=== PATIENT | male | born 1970 | race Caucasian/White ===

== ENCOUNTER 2017-03-21 11:37 | Emergency (ER) | payer MEDICARE, OTHER ==
[~2017-03-21] VITALS: Ht 177.8 cm; Wt 59.0 kg
[~2017-03-21 11:37] MED LIST: ACETAMINOPHEN500 MG PO; AMOCLA875 PO; Augmentin 875-1 EACH PO; Bactrim Ds Tab1 EACH PO; CEPH500 PO; CRUTCH3 USE; CYCL10 PO; Cleocin HCl300 MG PO; DIPH50 PO; DIVA125 PO; DOCU100 PO; Depakote125 MG PO; FOLI1 PO; FURO40 PO; HYDACE5 PO; IBUP400 PO; Keflex500 MG PO; METO25 PO; MULVITMIND PO; NAPR500 PO; NAPR550 PO; Norco 5-325 Ta1 EACH PO; OXYACE5T PO; POTCHL20ER PO; PRED15SY PO; PROM25 PO; Percocet 5-3251 EACH PO; QUET25 PO; RXNAPNA550 PO; Restoril15 MG PO; SULTRIDS PO; Synthroid175 MCG PO; THIA100 PO; TRAM50 PO
[2017-03-21] MEDS ORDERED: Ciloxan5 ML LEFTEYE (12:07)
== END 2017-03-21 12:37 | disposition home or self-care (01) ==
LOC: ER 11:37
DX: H16.002 Unspecified corneal ulcer, left eye (principal); F17.210 Nicotine dependence, cigarettes, uncomplicated
CPT/HCPCS: 99283

== ENCOUNTER 2018-10-17 09:25 | Emergency (ER) | payer MEDICARE, OTHER ==
[~2018-10-17] VITALS: Ht 175.3 cm; Wt 54.4 kg
[~2018-10-17 09:25] MED LIST changes: +Ciloxan5 ML LEFTEYE
[2018-10-17 11:16] LABS: BASOPHILS ABSOLUTE AUTO 0.08 K/mm3 (0.00-0.23); BASOPHILS PERCENT AUTO 1 % (0-2); EOSINOPHILS ABSOLUTE AUTO 0.03 K/mm3 (0.00-0.68); EOSINOPHILS PERCENT AUTO 0 % (0-6); Hemoglobin 11.1 g/dL (13.5-17.5); IMMATURE GRAN ABSOLUTE AUTO 0.07 K/mm3 (0.00-0.10); IMMATURE GRAN PERCENT AUTO 1 % (0-1); LYMPHOCYTES ABSOLUTE AUTO 2.98 K/mm3 (0.84-5.20); LYMPHOCYTES PERCENT AUTO 25 % (21-46); MONOCYTES ABSOLUTE AUTO 0.49 K/mm3 (0.16-1.47); MONOCYTES PERCENT AUTO 4 % (4-13); Mean Corpuscular HGB 31.9 pg (26.0-34.0); Mean Corpuscular HGB Conc 32.6 g/dL (31.5-36.5); Mean Corpuscular Volume 98 fL (80-100); Mean Platelet Volume 9.8 fL (9.1-12.4); NEUTROPHILS ABSOLUTE AUTO 8.24 K/mm3 (1.96-9.15); NEUTROPHILS PERCENT AUTO 69 % (41-73); Platelet Count 219 K/mm3 (150-400); RDW Coefficient Variation 16.4 % (11.7-14.2); RDW Standard Deviation 59.2 fL (35.1-46.3); Red Blood Cell Count 3.48 M/mm3 (4.30-5.90); White Blood Cell Count 11.89 K/mm3 (4.00-11.30)
[2018-10-17 11:36] LABS: Alanine Aminotransfer (ALT/SGP 69 U/L (12-78); Albumin, Blood 2.3 g/dL (3.4-5.0); Albumin/Globulin Ratio 0.4 (0.8-1.8); Alk Phos 673 U/L (50-136); Anion Gap 10 mmol/L (6-16); Aspartate Aminotrans (AST/SGOT 241 U/L (12-37); Bilirubin, Total 1.5 mg/dL (0.1-1.0); Blood Urea Nitrogen 2 mg/dL (8-24); Bun/Creatinine Ratio 4.6 (12.0-20.0); CO2, Blood 25 mmol/L (21-32); Calcium, Blood 8.2 mg/dL (8.5-10.1); Chloride, Blood 103 mmol/L (98-108); Creatinine, Blood 0.43 mg/dL (0.60-1.20); Globulin, Blood 5.2 g/dL (2.2-4.0); Glomerular Filtration Rate >60 (60-); Glucose, Blood 85 mg/dL (70-99); Potassium, Blood 3.5 mmol/L (3.5-5.5); Sodium, Blood 138 mmol/L (136-145); Total Protein, Blood 7.5 g/dL (6.4-8.2)
[2018-10-17] MEDS ORDERED: ERYT1OIN RIGHTEYE (13:23)
[2018-10-17] MEDS ORDERED: Augmentin 875-1 EACH PO (13:23)
[2018-10-17] MEDS ORDERED: NEOPOLHCSU LEFTEAR (13:23)
== END 2018-10-17 13:34 | disposition home or self-care (01) ==
LOC: ER 09:25
PROVIDERS: Emergency Medicine
DX: H60.92 Unspecified otitis externa, left ear (principal); H10.021 Other mucopurulent conjunctivitis, right eye; J18.9 Pneumonia, unspecified organism; R19.7 Diarrhea, unspecified; F17.210 Nicotine dependence, cigarettes, uncomplicated; Z91.14 Patient's other noncompliance with medication regimen
CPT/HCPCS: 36415; 71045; 80053; 85025; 96360; 99283-25; J7030

== ENCOUNTER 2019-10-02 13:18 | Inpatient (IN) | payer MEDICARE, OTHER ==
[~2019-10-02] VITALS: Ht 175.3 cm; Wt 57.0 kg
[~2019-10-02 13:18] MED LIST changes: +ERYT1OIN RIGHTEYE; +NEOPOLHCSU LEFTEAR
[2019-10-02 13:40] LABS: BASOPHILS ABSOLUTE AUTO 0.06 K/mm3 (0.00-0.23); BASOPHILS PERCENT AUTO 0 % (0-2); EOSINOPHILS ABSOLUTE AUTO 0.01 K/mm3 (0.00-0.68); EOSINOPHILS PERCENT AUTO 0 % (0-6); Hematocrit 43.9 % (37.0-53.0); Hemoglobin 14.5 g/dL (13.5-17.5); IMMATURE GRAN ABSOLUTE AUTO 0.21 K/mm3 (0.00-0.10); IMMATURE GRAN PERCENT AUTO 1 % (0-1); LYMPHOCYTES ABSOLUTE AUTO 1.19 K/mm3 (0.84-5.20); LYMPHOCYTES PERCENT AUTO 5 % (21-46); MONOCYTES ABSOLUTE AUTO 1.23 K/mm3 (0.16-1.47); MONOCYTES PERCENT AUTO 6 % (4-13); Mean Corpuscular HGB 29.1 pg (26.0-34.0); Mean Corpuscular Volume 88 fL (80-100); Mean Platelet Volume 10.1 fL (9.1-12.4); NEUTROPHILS ABSOLUTE AUTO 19.84 K/mm3 (1.96-9.15); NEUTROPHILS PERCENT AUTO 88 % (41-73); Platelet Count 183 K/mm3 (150-400); RDW Coefficient Variation 16.5 % (11.7-14.2); RDW Standard Deviation 53.1 fL (35.1-46.3); Red Blood Cell Count 4.99 M/mm3 (4.30-5.90); White Blood Cell Count 22.54 K/mm3 (4.00-11.30)
[2019-10-02 14:24] LABS: Alanine Aminotransfer (ALT/SGP 138 U/L (12-78); Albumin, Blood 2.4 g/dL (3.4-5.0); Albumin/Globulin Ratio 0.4 (0.8-1.8); Alk Phos 982 U/L (50-136); Anion Gap 13 mmol/L (6-16); Aspartate Aminotrans (AST/SGOT 931 U/L (12-37); Bilirubin, Total 5.8 mg/dL (0.1-1.0); Blood Urea Nitrogen 4 mg/dL (8-24); Bun/Creatinine Ratio 6.8 (12.0-20.0); CO2, Blood 23 mmol/L (21-32); Calcium, Blood 8.6 mg/dL (8.5-10.1); Chloride, Blood 94 mmol/L (98-108); Creatinine, Blood 0.59 mg/dL (0.60-1.20); Globulin, Blood 5.8 g/dL (2.2-4.0); Glomerular Filtration Rate >60 (60-); Glucose, Blood 81 mg/dL (70-99); Potassium, Blood 3.7 mmol/L (3.5-5.5); Sodium, Blood 130 mmol/L (136-145); Total Protein, Blood 8.2 g/dL (6.4-8.2)
[2019-10-02 15:40] LABS: Source, Urine Clean Catch
[2019-10-02 15:52] LABS: Appearance, Urine Cloudy (Clear); Blood, Urine 3+ (Neg); Color, Urine Amber (P-Yellow); Glucose Qualitative, Urine Neg (Neg); Ketones, Urine 3+ (Neg); Leukocyte Esterase, Urine 1+ (Neg); Nitrite, Urine Neg (Neg); Protein, Urine 3+ (Neg); Urobilinogen, Urine 3+ (Normal)
[2019-10-02] MEDS ORDERED: VALTREX1000 M1 PO (15:56)
[2019-10-02] MEDS ORDERED: DOXYCYCLINE HY100 M1 PO (15:57)
[2019-10-02] MEDS ORDERED: PRED FORTE5 ML BOTHEYES (15:57)
[2019-10-02 16:00] LABS: Bilirubin, Urine 3+ (Neg)
[2019-10-02 16:03] LABS: Amorphous Light (0-Heavy); Bacteria Mod /hpf; Mucus Mod (0-Heavy); Squamous Epithelial Cells Many /hpf (Few)
[2019-10-02 18:31] LABS: Cholesterol 137 mg/dL (50-200); HDL Cholesterol 34 mg/dL (>39); LDL/HDL RATIO 2.4; Low Density Lipoprotein Chol 83 mg/dL (0-110); Triglycerides 101 mg/dL (30-160); Very Low Density Lipoprot Chol 20 mg/dL (6-32)
--- NOTE | 2019-10-02 21:01 | NUR ---
transfer report from PARTS CATALOGUERJAMMIE Eden on 48 year old Male with pancreatitis who will on be on IV fluids , tele, NPO & have pain meds & CIWA assessments. Smokes 1 PPD tobacco, ETOH says 3 beers daily. Tx UTI had antibiotic pain meds IVF in ER. Await admission
--- NOTE | 2019-10-02 21:54 | NUR ---
48 year old Male arrived from ER wearing mask he looks older than actual age & is very thin. 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 He says his & he got shingles in his left eye which has been removed & replaced with donar eye. PT got up to bed Wearing mask & began vomiting which he had not done in ER. Due to mask PT may have aspirated. REmoved mask & PT continued to vomit thin dark emisis around 300 ml. HAs been NPO in ER says no oral intake since yesterday. When assisting PT to clean emisis it appears some old blood may be present in emisis. PT has banana bag infusing via IV. PT says his last ETOH was a week ago. Was drinking 3 24 oz beers daily. Smokes 1 PPD asking for nicotine patch for tobacco addiction. will discuss with
--- NOTE | 2019-10-03 04:18 | NUR ---
PTb had several coffee ground emisis at beginning of shift none since. Saved emisis in specimen container at bedside , MD La was informed. Protonix IV started NPO. Passing flatus. Medicated with zofran for nausea & vomiting x 1 with helpful effect. Med for abd pain of 7 with dilaudid x 1 with helpful effect. CIWA req no intervention currently. Wide awake since admission. Up with minimal assist. Tele NSR.
[2019-10-03 05:42] LABS: BASOPHILS ABSOLUTE AUTO 0.05 K/mm3 (0.00-0.23); BASOPHILS PERCENT AUTO 0 % (0-2); EOSINOPHILS PERCENT AUTO 0 % (0-6); Hematocrit 38.8 % (37.0-53.0); Hemoglobin 12.9 g/dL (13.5-17.5); IMMATURE GRAN ABSOLUTE AUTO 0.18 K/mm3 (0.00-0.10); IMMATURE GRAN PERCENT AUTO 1 % (0-1); LYMPHOCYTES ABSOLUTE AUTO 1.82 K/mm3 (0.84-5.20); LYMPHOCYTES PERCENT AUTO 8 % (21-46); MONOCYTES ABSOLUTE AUTO 1.09 K/mm3 (0.16-1.47); MONOCYTES PERCENT AUTO 5 % (4-13); Mean Corpuscular HGB 29.7 pg (26.0-34.0); Mean Corpuscular HGB Conc 33.2 g/dL (31.5-36.5); Mean Corpuscular Volume 89 fL (80-100); NEUTROPHILS ABSOLUTE AUTO 19.15 K/mm3 (1.96-9.15); NEUTROPHILS PERCENT AUTO 86 % (41-73); Platelet Count 144 K/mm3 (150-400); RDW Coefficient Variation 16.9 % (11.7-14.2); RDW Standard Deviation 54.6 fL (35.1-46.3); Red Blood Cell Count 4.35 M/mm3 (4.30-5.90); White Blood Cell Count 22.29 K/mm3 (4.00-11.30)
[2019-10-03 06:09] LABS: Alanine Aminotransfer (ALT/SGP 202 U/L (12-78); Albumin, Blood 2.1 g/dL (3.4-5.0); Albumin/Globulin Ratio 0.4 (0.8-1.8); Alk Phos 855 U/L (50-136); Anion Gap 7 mmol/L (6-16); Aspartate Aminotrans (AST/SGOT 820 U/L (12-37); Bilirubin, Total 6.3 mg/dL (0.1-1.0); Blood Urea Nitrogen 11 mg/dL (8-24); Bun/Creatinine Ratio 9.7 (12.0-20.0); CO2, Blood 27 mmol/L (21-32); Calcium, Blood 7.7 mg/dL (8.5-10.1); Chloride, Blood 97 mmol/L (98-108); Creatinine, Blood 1.13 mg/dL (0.60-1.20); Globulin, Blood 4.9 g/dL (2.2-4.0); Glomerular Filtration Rate >60 (60-); Glucose, Blood 104 mg/dL (70-99); Potassium, Blood 3.9 mmol/L (3.5-5.5); Sodium, Blood 131 mmol/L (136-145)
--- NOTE | 2019-10-03 16:31 | NUR ---
SUMMARY THIS AM PT NPO, DX PANCREATITIS w LIPASE [phone]. HE IS A/O X3 THIS AM, VERBALIZE UNDERSTANDING OF TX FOR PANCREATITIS & NEED FOR NPO. HE STATE MID ABD PAIN THIS AM, PRN DILAUDID 1MG IV GIVEN FOR RELIEF. DR BUSBY ORDER MRI ABD & GI CONSULT w DR GERAMN. GI IN FOR CONSULT, ORIGINALLY WANTED EGD THIS AFTERNOON HOWEVER POSTPONED UNTIL TOMORROW, STATE TO CONTINUE PROTONIX GTT OVERNITE & GIVE PT CLEAR LIQUID DIET. PT TOLERATING SM AMTS. HE HAS HX ETOH, MONITORING FOR S/S W/D. THIS AFTERNOON CIWA 6 R/T CLOUDED THOUGHT, ITCHING. PRN LIBRIUM GIVEN. VSS.
[2019-10-03 20:33] LABS: Hematocrit 38.3 % (37.0-53.0); Hemoglobin 12.3 g/dL (13.5-17.5)
[2019-10-04 02:23] LABS: BASOPHILS ABSOLUTE AUTO 0.03 K/mm3 (0.00-0.23); BASOPHILS PERCENT AUTO 0 % (0-2); EOSINOPHILS ABSOLUTE AUTO 0.05 K/mm3 (0.00-0.68); EOSINOPHILS PERCENT AUTO 0 % (0-6); Hematocrit 35.3 % (37.0-53.0); Hemoglobin 11.8 g/dL (13.5-17.5); IMMATURE GRAN PERCENT AUTO 1 % (0-1); LYMPHOCYTES ABSOLUTE AUTO 1.71 K/mm3 (0.84-5.20); LYMPHOCYTES PERCENT AUTO 11 % (21-46); MONOCYTES PERCENT AUTO 4 % (4-13); Mean Corpuscular HGB 29.6 pg (26.0-34.0); Mean Corpuscular HGB Conc 33.4 g/dL (31.5-36.5); Mean Corpuscular Volume 89 fL (80-100); Mean Platelet Volume 11.6 fL (9.1-12.4); NEUTROPHILS ABSOLUTE AUTO 13.01 K/mm3 (1.96-9.15); NEUTROPHILS PERCENT AUTO 84 % (41-73); Platelet Count 128 K/mm3 (150-400); RDW Coefficient Variation 17.4 % (11.7-14.2); RDW Standard Deviation 56.2 fL (35.1-46.3); Red Blood Cell Count 3.98 M/mm3 (4.30-5.90)
[2019-10-04 02:36] LABS: International Normalized Ratio 1.28; Prothrombin Time Results 13.5 Sec (9.7-11.5)
[2019-10-04 02:40] LABS: Alanine Aminotransfer (ALT/SGP 170 U/L (12-78); Albumin, Blood 1.9 g/dL (3.4-5.0); Albumin/Globulin Ratio 0.5 (0.8-1.8); Alk Phos 706 U/L (50-136); Anion Gap 7 mmol/L (6-16); Aspartate Aminotrans (AST/SGOT 469 U/L (12-37); Bilirubin, Total 5.4 mg/dL (0.1-1.0); Blood Urea Nitrogen 8 mg/dL (8-24); Bun/Creatinine Ratio 9.8 (12.0-20.0); CO2, Blood 24 mmol/L (21-32); Calcium, Blood 7.8 mg/dL (8.5-10.1); Chloride, Blood 103 mmol/L (98-108); Creatinine, Blood 0.82 mg/dL (0.60-1.20); Globulin, Blood 4.2 g/dL (2.2-4.0); Glomerular Filtration Rate >60 (60-); Glucose, Blood 75 mg/dL (70-99); Potassium, Blood 3.3 mmol/L (3.5-5.5); Sodium, Blood 134 mmol/L (136-145); Total Protein, Blood 6.1 g/dL (6.4-8.2)
--- NOTE | 2019-10-04 03:02 | NUR ---
PT continues on IVF INPATIENT AUDITOR Lino updated on need to have fliuds on NPO PT with pancreatitis & elevated biliruben. NS at 100 ml hr rx & continued. PT was medicated for abd pain x 1 with fentanyl 50 mcg with helpful effect to relieve abd pain. started on clear liquids, had minimal oral intake drank 50% ensure clear without nausea. Alert awake with more confusion. Medicated for CIWA score with librium 50 mg with helpful effect to promote rest. Up with assist to bathroom urine ted orange voids small amts. 0 stool or emisis seen. Had MRI abd pelvis yesterday GI consult & has upper endo scheduled for today. Mildly anxious about procedure.
[2019-10-04 08:11] LABS: HBSAG SCREEN Negative (Negative); HEP B CORE AB, TOT Negative (Negative); HEP C VIRUS AB 0.1 (0.0-0.9)
[2019-10-04 08:11] LABS: HEP A AB, IGM Negative (Negative); HEP B CORE AB, IGM Negative (Negative)
[2019-10-04 08:15] LABS: Hematocrit 32.5 % (37.0-53.0); Hemoglobin 10.6 g/dL (13.5-17.5)
--- NOTE | 2019-10-04 09:57 | NUR ---
ASSUME CARE: PT PLAN FOR EGD TODAY, EKG WAS DONE PRE PROCEDURE. VITALS HRR SINUS TACH 110'S, DENIES CHEST PAIN PRESSURE, BP SYSTOLIC 110'S, SATS ABOVE 95% ON ROOMAIR, DENIES SOB. PT REMAINS ON CLEAR LIQUID DIET STILL HAS POOR APPETITE, C/O MILD NAUSEA MOSTLY WITH MOVEMENTS, CIWA CURRENTLY STABLE AT 8. NO ACUTE CHANGES. LR STARTED RUNNING AT 100MLS/HR, PROTONIX DRIP AND IV ABO PER ORDER. PT ALERT TO SELF AN DFAMILY, MILD CONFUSION, ABLE TO MAKE NEEDS KNOWN, GETS UP AND MOVE AROUND TO USE THE BATHROOM, BED ALARM ON FOR SAFETY. WILL MONITOR
--- NOTE | 2019-10-04 11:52 | NUR ---
PT TO [facility]. APPEARS ANXIOUS, MOTHER REPORTS VERY POOR SHORT TERM MEMORY. PRE-OP TEACHING DONE. Lungs clear T/O to Auscultation. History, Chart, Medications and Allergies reviewed before start of procedure. Patient confirms NPO status and agrees with scheduled surgery.
--- NOTE | 2019-10-04 12:21 | NUR ---
10/04/19 1221 VASYL OSPINA History, Chart, Medications and Allergies reviewed before start of procedure. 3-LEAD EKG REVIEWED WITH PHYSICIAN PRIOR TO START OF PROCEDURE. O2 VIA N/C INTACT THROUGHOUT SEDATION/PROCEDURE. MONITOR INTACT WITH CONTINUOUS PULSE OXIMETRY AND INTERMITTENT BP. MODERATE SEDATION WITH FENTANYL VERSED PER DR. MOROCHO.
[2019-10-04 14:03] LABS: Hemoglobin 11.3 g/dL (13.5-17.5)
--- NOTE | 2019-10-04 17:19 | NUR ---
PT SUMARY: SEE PREVIOUS NOTE. EGD WAS DONE TODAY, NO INTERVENTION DONE THERE NO ACTIVE BLEEDING SEEN ON THE SCOPE, ESOPHAGITIS AND GASTRITIS SEEN, PT STARTED ON CARAFATE, PROTONIX DRIP DC'D. CONITNUES ON LR AT 100MLS/HR. PT REMAINS ON CLEAR LIQUID, C/O NAUSEA THIS AM ZOFRAN GIVEN AND WAS EFFECTIVE, PT WITH ORDER TO ADVANCE DIET TOLERATED, PT STILL HAS POOR APPETITE AT THIS POINT. CIWA SCORES STABLE 8-10, LIBRIUM WAS GIVEN X1, PT HAS VISIBLE TREMORS MOSTLY WITH MOVEMENT, ALSO ATTEMPTED TO GET OUT OF BED TO SMOKE PT WAS EASILY GET REDIRECTED. BED ALARM ON FOR SAFETY. PT CALM AND COOPERATIVE EASILY FOLLOWS DIRECTION. VITALS HAS BEEN STABLE. NO OTHER ISSUES ECNOUNTERED FOR DAVIAN SHIFT. WILL REPORT TO ONCOMING SHIFT
[2019-10-05 05:15] LABS: BASOPHILS ABSOLUTE AUTO 0.06 K/mm3 (0.00-0.23); BASOPHILS PERCENT AUTO 0 % (0-2); EOSINOPHILS ABSOLUTE AUTO 0.06 K/mm3 (0.00-0.68); EOSINOPHILS PERCENT AUTO 0 % (0-6); Hematocrit 30.3 % (37.0-53.0); IMMATURE GRAN ABSOLUTE AUTO 0.16 K/mm3 (0.00-0.10); IMMATURE GRAN PERCENT AUTO 1 % (0-1); LYMPHOCYTES ABSOLUTE AUTO 1.82 K/mm3 (0.84-5.20); LYMPHOCYTES PERCENT AUTO 12 % (21-46); MONOCYTES ABSOLUTE AUTO 1.34 K/mm3 (0.16-1.47); MONOCYTES PERCENT AUTO 9 % (4-13); Mean Corpuscular HGB 29.2 pg (26.0-34.0); Mean Corpuscular Volume 88 fL (80-100); Mean Platelet Volume 10.8 fL (9.1-12.4); NEUTROPHILS PERCENT AUTO 77 % (41-73); NRBC ABSOLUTE 0.02 K/mm3 (0.00-0.02); NRBC Auto 0.1 /100 WBC (0.0-0.2); Platelet Count 132 K/mm3 (150-400); RDW Coefficient Variation 17.5 % (11.7-14.2); RDW Standard Deviation 56.8 fL (35.1-46.3); Red Blood Cell Count 3.43 M/mm3 (4.30-5.90); White Blood Cell Count 14.74 K/mm3 (4.00-11.30)
[2019-10-05 05:51] LABS: Alanine Aminotransfer (ALT/SGP 116 U/L (12-78); Albumin, Blood 1.7 g/dL (3.4-5.0); Albumin/Globulin Ratio 0.4 (0.8-1.8); Alk Phos 652 U/L (50-136); Anion Gap 9 mmol/L (6-16); Aspartate Aminotrans (AST/SGOT 221 U/L (12-37); Bilirubin, Total 4.2 mg/dL (0.1-1.0); Blood Urea Nitrogen 6 mg/dL (8-24); Bun/Creatinine Ratio 9.6 (12.0-20.0); CO2, Blood 22 mmol/L (21-32); Calcium, Blood 7.2 mg/dL (8.5-10.1); Chloride, Blood 104 mmol/L (98-108); Creatinine, Blood 0.62 mg/dL (0.60-1.20); Globulin, Blood 4.1 g/dL (2.2-4.0); Glomerular Filtration Rate >60 (60-); Glucose, Blood 81 mg/dL (70-99); Potassium, Blood 2.9 mmol/L (3.5-5.5); Sodium, Blood 135 mmol/L (136-145); Total Protein, Blood 5.8 g/dL (6.4-8.2)
--- NOTE | 2019-10-05 06:35 | NUR ---
SHIFT SUMMARY PATIENT VERY CONFUSED OVERNIGHT. WAS PULLING AT TELE LEADS AND IV TUBING, COULDN'T REMEMBER WHERE HE WAS AT OR WHAT DAY IT WAS. MEDICATED PER EMAR FOR PAIN. CIWAS ALL SHOWED THE PATIENT TO BE IN STABLE WITHDRAWAL. IV PATENT AND INFUSING WITH LACTATED RINGERS AT 100 ML/HR. BED IN LOWEST POSITION WITH WHEELS LOCKED AND ALARM ON. CALL LIGHT WITHIN REACH. REPORT GIVEN TO ONCOMING RN.
--- NOTE | 2019-10-05 18:29 | NUR ---
PT IMPULSIVE, FORGETS LIMITATIONS AND JUMPS OUT OF BED AND HE MOVES QUICKLY. HE HAS PULLED A COUPLE IV'S THIS WAY. NEW IV PLACED THIS MORNING. PT POTASSIUM LEVEL 2.9 WITH AM LABS. RECEIVED 60MEQ IV KCL, TOLERATED WELL. 1 LARGE LOOSE STOOL THIS SHIFT. NO ACUTE CHANGES, WILL CONTINUE TO MONITOR AND REPORT TO ON COMING RN
[2019-10-06 05:16] LABS: BASOPHILS ABSOLUTE AUTO 0.07 K/mm3 (0.00-0.23); BASOPHILS PERCENT AUTO 0 % (0-2); EOSINOPHILS ABSOLUTE AUTO 0.06 K/mm3 (0.00-0.68); EOSINOPHILS PERCENT AUTO 0 % (0-6); Hematocrit 29.2 % (37.0-53.0); Hemoglobin 9.9 g/dL (13.5-17.5); IMMATURE GRAN ABSOLUTE AUTO 0.33 K/mm3 (0.00-0.10); IMMATURE GRAN PERCENT AUTO 2 % (0-1); LYMPHOCYTES ABSOLUTE AUTO 2.29 K/mm3 (0.84-5.20); LYMPHOCYTES PERCENT AUTO 12 % (21-46); MONOCYTES PERCENT AUTO 14 % (4-13); Mean Corpuscular HGB 29.3 pg (26.0-34.0); Mean Corpuscular HGB Conc 33.9 g/dL (31.5-36.5); Mean Corpuscular Volume 86 fL (80-100); Mean Platelet Volume 10.7 fL (9.1-12.4); NEUTROPHILS ABSOLUTE AUTO 14.28 K/mm3 (1.96-9.15); NEUTROPHILS PERCENT AUTO 72 % (41-73); Platelet Count 135 K/mm3 (150-400); RDW Coefficient Variation 17.8 % (11.7-14.2); Red Blood Cell Count 3.38 M/mm3 (4.30-5.90); White Blood Cell Count 19.83 K/mm3 (4.00-11.30)
[2019-10-06 05:35] LABS: Alanine Aminotransfer (ALT/SGP 85 U/L (12-78); Albumin, Blood 1.6 g/dL (3.4-5.0); Albumin/Globulin Ratio 0.4 (0.8-1.8); Alk Phos 596 U/L (50-136); Anion Gap 5 mmol/L (6-16); Aspartate Aminotrans (AST/SGOT 109 U/L (12-37); Bilirubin, Total 4.3 mg/dL (0.1-1.0); Blood Urea Nitrogen 3 mg/dL (8-24); Bun/Creatinine Ratio 5.5 (12.0-20.0); CO2, Blood 27 mmol/L (21-32); Calcium, Blood 7.2 mg/dL (8.5-10.1); Chloride, Blood 101 mmol/L (98-108); Creatinine, Blood 0.55 mg/dL (0.60-1.20); Globulin, Blood 4.1 g/dL (2.2-4.0); Glomerular Filtration Rate >60 (60-); Glucose, Blood 106 mg/dL (70-99); Potassium, Blood 2.8 mmol/L (3.5-5.5); Sodium, Blood 133 mmol/L (136-145); Total Protein, Blood 5.7 g/dL (6.4-8.2)
--- NOTE | 2019-10-06 05:43 | NUR ---
Rn summary: Patient is alert but confused. Stated part way through shift that he was not aware he was in the hospital. Pt thought the year was 2009, didnt know the month but did know the president. Pt did unhook his IV line and take off his tele. He has done better the second half of the shift and has rested on and off. Pt has not c/o abd pain, did have some back pain. Has not needed pain meds this shift. Pt did have a lot of clear liquids at the beginning of shift, no c/o nausia. Pt is getting scheduled zofran. K+ remains low 2.8 this am. WBC is more elevated. Vital signs are stable. Bed alarm on bed, pt does not use call light reliably, he is impulsive and forgetful. He can be redirected.
[2019-10-06 15:43] LABS: Anion Gap 8 mmol/L (6-16); Blood Urea Nitrogen 3 mg/dL (8-24); Bun/Creatinine Ratio 6.3 (12.0-20.0); CO2, Blood 25 mmol/L (21-32); Calcium, Blood 7.8 mg/dL (8.5-10.1); Chloride, Blood 98 mmol/L (98-108); Creatinine, Blood 0.47 mg/dL (0.60-1.20); Glomerular Filtration Rate >60 (60-); Glucose, Blood 84 mg/dL (70-99); Potassium, Blood 3.2 mmol/L (3.5-5.5); Sodium, Blood 131 mmol/L (136-145)
--- NOTE | 2019-10-06 18:21 | NUR ---
PT WITH KCL OF 2.8 THIS AM, 80 MEQ IV KCL ORDERED AND GIVEN. CHEM LAB THIS AFTERNOON SHOWED KCL OF 3.2. 20 MEQ REMAINED TO BE INFUSED. NO REPORTS OF N/V OR PAIN. NO ACUTE CHANGES NOTED THIS SHIFT. WILL CONTINUE TO MONITOR AND REPORT TO ONCOMING RN
--- NOTE | 2019-10-07 06:16 | NUR ---
SHIFT SUMMARY: PT IS ALERT AND ORIENTED WITH INTERMITTENT CONFUSION. PT DID NOT USE HIS CALL LIGHT OVERNIGHT, SET OFF THE BED ALARM ON SEVERAL OCCASIONS. PT DENIES PAIN, NAUSEA, VOMITING, AND SOB. PT SLEPT INTERMITTENTLY THROUGHOUT THE NIGHT. BED IN LOW POSITION, CALL LIGHT WITHIN REACH. WILL REPORT TO DAY NURSE.
[2019-10-07 08:47] LABS: Anion Gap 8 mmol/L (6-16); Blood Urea Nitrogen 3 mg/dL (8-24); Bun/Creatinine Ratio 4.8 (12.0-20.0); CO2, Blood 25 mmol/L (21-32); Calcium, Blood 7.5 mg/dL (8.5-10.1); Chloride, Blood 101 mmol/L (98-108); Creatinine, Blood 0.63 mg/dL (0.60-1.20); Glomerular Filtration Rate >60 (60-); Glucose, Blood 94 mg/dL (70-99); Potassium, Blood 3.2 mmol/L (3.5-5.5); Sodium, Blood 134 mmol/L (136-145)
[2019-10-07 09:08] LABS: Hematocrit 29.4 % (37.0-53.0); Mean Corpuscular HGB 29.6 pg (26.0-34.0); Mean Corpuscular Volume 87 fL (80-100); Mean Platelet Volume 11.7 fL (9.1-12.4); Platelet Count 144 K/mm3 (150-400); RDW Coefficient Variation 18.1 % (11.7-14.2); RDW Standard Deviation 57.4 fL (35.1-46.3); Red Blood Cell Count 3.38 M/mm3 (4.30-5.90); White Blood Cell Count 18.64 K/mm3 (4.00-11.30)
[2019-10-07] MEDS ORDERED: PANT40 PO (11:22)
[2019-10-07] MEDS ORDERED: CARAFATE1 GM/10 M1 PO (11:24)
[2019-10-07] MEDS ORDERED: NICO21TP TOP (11:27)
--- NOTE | 2019-10-07 12:22 | NUR ---
DISCHARGE DISCHARGE MEDICATIONS AND INSTRUCTIONS EXPLAINED TO PATIENT AND PATIENT'S MOTHER. THEY STATED UNDERSTANDING. PATIENT ADVISED TO ABSTAIN FROM ALCOHOL. IV REMOVED WITHOUT DIFFICULTY. BELONGINGS WITH PATIENT. PATIENT TRANSFERED TO PRIVATE VEHICLE VIA WHEELCHAIR.
== END 2019-10-07 12:04 | disposition home or self-care (01) | DRG 438 ==
LOC: ER 13:18 → MEDS 17:57
PROVIDERS: Family Medicine; Hospitalist; Internal Medicine; Physician Assistant; Student in an Organized Health Care Education/Training Program; ADMIT Internal Medicine
PROC: 0DB48ZX Excision of Esophagogastric Junction, Via Natural or Artificial Opening Endoscopic, Diagnostic (ICD-10-PCS; principal; 2019-10-04 12:00)
DX: K85.20 Alcohol induced acute pancreatitis without necrosis or infection (principal); K29.71 Gastritis, unspecified, with bleeding; K22.11 Ulcer of esophagus with bleeding; G93.41 Metabolic encephalopathy; F10.230 Alcohol dependence with withdrawal, uncomplicated; E87.1 Hypo-osmolality and hyponatremia; R65.10 Systemic inflammatory response syndrome (SIRS) of non-infectious origin without acute organ dysfunction; Z20.828 Contact with and (suspected) exposure to other viral communicable diseases; E86.0 Dehydration; D17.0 Benign lipomatous neoplasm of skin and subcutaneous tissue of head, face and neck; E88.09 Other disorders of plasma-protein metabolism, not elsewhere classified; H54.7 Unspecified visual loss; K44.9 Diaphragmatic hernia without obstruction or gangrene; K70.10 Alcoholic hepatitis without ascites; E87.6 Hypokalemia; I10 Essential (primary) hypertension; F17.210 Nicotine dependence, cigarettes, uncomplicated
CPT/HCPCS: 36415; 74176; 74181; 76705; 80048; 80053; 80061; 81001; 83605; 83690; 83735; 84145; 84484; 85014; 85018; 85025; 85027; 85610; 86317; 86704; 86705; 86708; 86709; 86803; 87040; 87086; 87340; 88305; 88312; 88342; 93005; 93010; 96374; 96375; 99285-25; A9270; C9113; G0480; J0696; J1170; J2250; J2405; J3010; J3411; J3475; J3480; J7030; J7042; J7120; U0002

== ENCOUNTER 2020-01-24 19:09 | Inpatient (IN) | payer MEDICARE ==
[~2020-01-24] VITALS: Ht 165.1 cm; Wt 51.4 kg
[~2020-01-24 19:09] MED LIST changes: +CARAFATE1 GM/10 M1 PO; +DOXYCYCLINE HY100 M1 PO; +NICO21TP TOP; +PANT40 PO; +PRED FORTE5 ML BOTHEYES; +VALTREX1000 M1 PO
[2020-01-24 19:39] LABS: BASOPHILS ABSOLUTE AUTO 0.11 K/mm3 (0.00-0.23); BASOPHILS PERCENT AUTO 1 % (0-2); EOSINOPHILS ABSOLUTE AUTO 0.01 K/mm3 (0.00-0.68); EOSINOPHILS PERCENT AUTO 0 % (0-6); Hematocrit 36.6 % (37.0-53.0); Hemoglobin 11.7 g/dL (13.5-17.5); IMMATURE GRAN ABSOLUTE AUTO 0.34 K/mm3 (0.00-0.10); IMMATURE GRAN PERCENT AUTO 2 % (0-1); LYMPHOCYTES ABSOLUTE AUTO 2.44 K/mm3 (0.84-5.20); LYMPHOCYTES PERCENT AUTO 11 % (21-46); MONOCYTES ABSOLUTE AUTO 2.01 K/mm3 (0.16-1.47); MONOCYTES PERCENT AUTO 9 % (4-13); Mean Corpuscular HGB 27.1 pg (26.0-34.0); Mean Corpuscular Volume 85 fL (80-100); Mean Platelet Volume 8.9 fL (9.1-12.4); NEUTROPHILS ABSOLUTE AUTO 16.88 K/mm3 (1.96-9.15); NEUTROPHILS PERCENT AUTO 78 % (41-73); Platelet Count 443 K/mm3 (150-400); RDW Coefficient Variation 14.6 % (11.7-14.2); RDW Standard Deviation 45.4 fL (35.1-46.3); Red Blood Cell Count 4.31 M/mm3 (4.30-5.90); White Blood Cell Count 21.79 K/mm3 (4.00-11.30)
[2020-01-24 19:53] LABS: Alanine Aminotransfer (ALT/SGP 10 U/L (12-78); Albumin, Blood 2.6 g/dL (3.4-5.0); Albumin/Globulin Ratio 0.5 (0.8-1.8); Alk Phos 298 U/L (50-136); Anion Gap 13 mmol/L (6-16); Aspartate Aminotrans (AST/SGOT 21 U/L (12-37); Bilirubin, Total 0.8 mg/dL (0.1-1.0); Blood Urea Nitrogen 5 mg/dL (8-24); Bun/Creatinine Ratio 11.8 (12.0-20.0); CO2, Blood 20 mmol/L (21-32); Chloride, Blood 91 mmol/L (98-108); Creatinine, Blood 0.42 mg/dL (0.60-1.20); Ethanol (Alcohol), Blood, Med <3 mg/dL; Globulin, Blood 5.7 g/dL (2.2-4.0); Glomerular Filtration Rate >60 (60-); Glucose, Blood 112 mg/dL (70-99); Potassium, Blood 3.6 mmol/L (3.5-5.5); Sodium, Blood 124 mmol/L (136-145); Total Protein, Blood 8.3 g/dL (6.4-8.2)
[2020-01-24 21:32] LABS: Source, Urine Catheter
[2020-01-24 21:35] LABS: Blood, Urine 2+ (Neg); Glucose Qualitative, Urine Neg (Neg); Ketones, Urine 4+ (Neg); Leukocyte Esterase, Urine 1+ (Neg); Nitrite, Urine Neg (Neg); Protein, Urine 2+ (Neg); Specific Gravity, Urine 1.015 (1.003-1.022); Urobilinogen, Urine 2+ (Normal); pH, Urine 6.5 (5.0-8.0)
[2020-01-24 21:45] LABS: Appearance, Urine Clear (Clear); Bilirubin, Urine 1+ (Neg); Color, Urine Yellow (P-Yellow)
[2020-01-24 21:46] LABS: Bacteria Few /hpf; Squamous Epithelial Cells Few /hpf (Few)
[2020-01-24 21:47] LABS: U Amphetamine Screen Not Detected; U Barbituate Screen Not Detected; U Benzodiazapine Screen DETECTED; U Buprenorphine Screen Not Detected; U Cannabinoids Screen DETECTED; U Cocaine Screen Not Detected; U Methadone Screen Not Detected; U Methamphetamine Screen Not Detected; U Opiates Screen Not Detected; U Oxycodone Screen DETECTED; U Phencyclidine Screen Not Detected; U Propoxyphene Screen Not Detected
[2020-01-24 23:10] LABS: Magnesium, Blood 1.6 mg/dL (1.6-2.4)
[2020-01-25 01:26] LABS: Influenza A, PCR Negative (NEGATIVE); Influenza B, PCR Negative (NEGATIVE); Resp Syncytial Virus, PCR Negative (NEGATIVE); SARS-Cov-2 (COVID-19) PCR, MMC Negative (NEGATIVE)
--- NOTE | 2020-01-25 05:42 | NUR ---
SHIFT SUMMARY PT TRANSPORTED TO UNIT DURING SHIFT FROM ER. PT LETHARGIC AND NON-VERBAL. UNSURE OF BASELINE. PT'S PUPILLARY REPONSE DIFFICULT TO OBTAIN D/T CLOUDING WITHIN THE R EYE. PT HAS FAKE L EYE. PT SENT TO CT FOR URGENT SCAN. PT PRESCRIBED ATIVAN 1-3 MG FOR ALCOHOL WITHDRAWL SYMPTOMS. PT ABLE TO TURN SELF IN BED. OXYGEN SATURATION ABOVE 95% ON RA. BP STABLE. HR STABLE. UNABLE TO ASSESS PT'S PAIN LEVEL. WILL CONTINUE TO MONITOR UNTIL REPORT GIVEN TO DAYSHIFT RN.
--- NOTE | 2020-01-25 06:16 | NUR ---
IV INSERTION IV INSERTED PRIOR TO ARRIVAL TO UNIT.
--- NOTE | 2020-01-25 07:23 | NUR ---
ASSUMED CARE: PT IN BED AT THIS TIME, FIDGETING IN BED. ALARM IN PLACE. TRAUMA REGISTRAR AT BEDSIDE. NO FURTHER NEEDS AT THIS TIME.
[2020-01-25 07:57] LABS: BASOPHILS ABSOLUTE AUTO 0.09 K/mm3 (0.00-0.23); BASOPHILS PERCENT AUTO 1 % (0-2); EOSINOPHILS ABSOLUTE AUTO 0.01 K/mm3 (0.00-0.68); EOSINOPHILS PERCENT AUTO 0 % (0-6); Hematocrit 31.2 % (37.0-53.0); Hemoglobin 10.1 g/dL (13.5-17.5); IMMATURE GRAN ABSOLUTE AUTO 0.21 K/mm3 (0.00-0.10); IMMATURE GRAN PERCENT AUTO 1 % (0-1); LYMPHOCYTES ABSOLUTE AUTO 2.29 K/mm3 (0.84-5.20); LYMPHOCYTES PERCENT AUTO 13 % (21-46); MONOCYTES ABSOLUTE AUTO 1.77 K/mm3 (0.16-1.47); MONOCYTES PERCENT AUTO 10 % (4-13); Mean Corpuscular HGB 27.2 pg (26.0-34.0); Mean Corpuscular HGB Conc 32.4 g/dL (31.5-36.5); Mean Corpuscular Volume 84 fL (80-100); Mean Platelet Volume 8.9 fL (9.1-12.4); NEUTROPHILS ABSOLUTE AUTO 12.96 K/mm3 (1.96-9.15); NEUTROPHILS PERCENT AUTO 75 % (41-73); Platelet Count 330 K/mm3 (150-400); RDW Coefficient Variation 14.6 % (11.7-14.2); RDW Standard Deviation 43.8 fL (35.1-46.3); Red Blood Cell Count 3.72 M/mm3 (4.30-5.90); White Blood Cell Count 17.33 K/mm3 (4.00-11.30)
[2020-01-25 08:16] LABS: Alanine Aminotransfer (ALT/SGP 6 U/L (12-78); Albumin, Blood 2.5 g/dL (3.4-5.0); Albumin/Globulin Ratio 0.5 (0.8-1.8); Alk Phos 242 U/L (50-136); Anion Gap 9 mmol/L (6-16); Aspartate Aminotrans (AST/SGOT 18 U/L (12-37); Bilirubin, Total 0.9 mg/dL (0.1-1.0); Blood Urea Nitrogen 3 mg/dL (8-24); Bun/Creatinine Ratio 7.6 (12.0-20.0); CO2, Blood 20 mmol/L (21-32); Calcium, Blood 8.4 mg/dL (8.5-10.1); Chloride, Blood 97 mmol/L (98-108); Globulin, Blood 4.7 g/dL (2.2-4.0); Glomerular Filtration Rate >60 (60-); Glucose, Blood 112 mg/dL (70-99); Potassium, Blood 3.9 mmol/L (3.5-5.5); Sodium, Blood 126 mmol/L (136-145); Total Protein, Blood 7.2 g/dL (6.4-8.2)
--- NOTE | 2020-01-25 10:33 | NUR ---
DR LEE CAME TO SEE PT AND IS AWARE THAT PT IS VERY FIDGETY BUT UNRESPONSIVE. CHANGED ORDER FOR MRI TO STAT AND MEDICATED WITH 1MG ATIVAN PRIOR PER DR LEE. PT TAKEN TO MRI BUT STILL WAS MOVING TOO MUCH. CALL TO DR FIGUEREDO WHO INSTRUCTED FOR 2 MORE MG. GIVEN AND DID NOT MAKE A DIFFERENCE. DR FIGUEREDO AWARE THAT MRI WAS UNABLE TO BE COMPLETED.
--- NOTE | 2020-01-25 11:05 | NUR ---
NEURO STATUS: PT REMAINS UNRESPONSIVE, MOVES ALL EXTREMETIES, CONSTANTLY FIDGETS BUT DOES NOT WAKE OR SPEAK. PLAN IS FOR TRANSFER TO [facility] WHEN BED AVAILABLE.
--- NOTE | 2020-01-25 13:42 | NUR ---
REPORT CALLED TO MARCELINA AT [facility]. PT'S MOTHER HAS BEEN UPDATED PER 'S NOTES. PT TRANSFERRED VIA GURNEY BY AMBULANCE STAFF. NO FURTHER NEEDS OR CONCERNS AT THIS TIME. NEURO STATUS UNCHANGED SINCE THIS AM.
== END 2020-01-25 13:42 | disposition short-term general hospital (02) | DRG 897 ==
LOC: ER 19:09 → ERHOLD 22:54 → ER 01-25 00:40 → ERHOLD 01-25 00:40 → PCU 01-25 00:40 → ERHOLD 01-25 01:02 → PCU 01-25 13:42
PROVIDERS: Physician Assistant; ADMIT Internal Medicine
DX: F10.231 Alcohol dependence with withdrawal delirium (principal); E87.1 Hypo-osmolality and hyponatremia; G31.2 Degeneration of nervous system due to alcohol; E03.9 Hypothyroidism, unspecified; I10 Essential (primary) hypertension; Z20.828 Contact with and (suspected) exposure to other viral communicable diseases; F17.210 Nicotine dependence, cigarettes, uncomplicated
CPT/HCPCS: 0241U; 36415; 51701; 70450; 71045; 80053; 81001; 83605; 83690; 83735; 85025; 87040; 87086; 96361-59; 96365-59; 96375-59; 96376; 99285-25; G0480; J0692; J0696; J1650; J1953; J2060; J2543; J3370; J3411; J3475; J3480; J7030; J7042; P9046

== ENCOUNTER 2021-07-28 17:24 | Emergency (ER) | payer MEDICARE ==
[~2021-07-28] VITALS: Ht 175.3 cm; Wt 54.4 kg
== END 2021-07-28 19:42 | disposition home or self-care (01) ==
LOC: ER 17:24
DX: S09.90XA Unspecified injury of head, initial encounter (principal); S00.03XA Contusion of scalp, initial encounter; F17.210 Nicotine dependence, cigarettes, uncomplicated; X58.XXXA Exposure to other specified factors, initial encounter; Z79.899 Other long term (current) drug therapy; Z79.52 Long term (current) use of systemic steroids
CPT/HCPCS: 70450; 72125

== ENCOUNTER 2022-10-23 10:17 | Observation (INO) | payer MEDICARE, OTHER ==
[~2022-10-23] VITALS: Ht 175.3 cm; Wt 46.2 kg
[2022-10-23 11:05] LABS: BASOPHILS ABSOLUTE AUTO 0.12 K/mm3 (0.00-0.23); BASOPHILS PERCENT AUTO 1 % (0-2); EOSINOPHILS ABSOLUTE AUTO 0.21 K/mm3 (0.00-0.68); EOSINOPHILS PERCENT AUTO 1 % (0-6); IMMATURE GRAN ABSOLUTE AUTO 0.21 K/mm3 (0.00-0.10); IMMATURE GRAN PERCENT AUTO 1 % (0-1); LYMPHOCYTES ABSOLUTE AUTO 3.16 K/mm3 (0.84-5.20); LYMPHOCYTES PERCENT AUTO 18 % (21-46); MONOCYTES PERCENT AUTO 8 % (4-13); Mean Corpuscular HGB Conc 33.3 g/dL (31.5-36.5); Mean Corpuscular Volume 102 fL (80-100); Mean Platelet Volume 9.5 fL (9.1-12.4); NEUTROPHILS ABSOLUTE AUTO 12.63 K/mm3 (1.96-9.15); NEUTROPHILS PERCENT AUTO 71 % (41-73); Platelet Count 538 K/mm3 (150-400); RDW Coefficient Variation 13.4 % (11.7-14.2); RDW Standard Deviation 50.4 fL (35.1-46.3); Red Blood Cell Count 3.53 M/mm3 (4.30-5.90); White Blood Cell Count 17.73 K/mm3 (4.00-11.30)
[2022-10-23 11:22] LABS: Albumin, Blood 2.3 g/dL (3.4-5.0); Albumin/Globulin Ratio 0.4 (0.8-1.8); Bilirubin, Total 0.4 mg/dL (0.1-1.0); Bun/Creatinine Ratio 4.4 (12.0-20.0); Calcium, Blood 8.2 mg/dL (8.5-10.1); Creatinine, Blood 0.46 mg/dL (0.60-1.20); Globulin, Blood 5.3 g/dL (2.2-4.0); Potassium, Blood 4.7 mmol/L (3.5-5.5); Total Protein, Blood 7.6 g/dL (6.4-8.2)
[2022-10-23 13:29] LABS: Influenza A, PCR NEGATIVE (NEGATIVE); Influenza B, PCR NEGATIVE (NEGATIVE); Resp Syncytial Virus, PCR NEGATIVE (NEGATIVE); SARS-Cov-2 (COVID-19) PCR, MMC NEGATIVE (NEGATIVE)
[2022-10-23 14:36] LABS: Source, Urine Clean Catch
[2022-10-23 14:41] LABS: Appearance, Urine Hazy (Clear); Bilirubin, Urine Neg (Neg); Blood, Urine 5+ (Neg); Color, Urine Amber (P-Yellow); Glucose Qualitative, Urine Neg (Neg); Ketones, Urine Neg (Neg); Leukocyte Esterase, Urine 3+ (Neg); Nitrite, Urine Pos (Neg); Protein, Urine 2+ (Neg); Specific Gravity, Urine 1.015 (1.003-1.022); Urobilinogen, Urine NORM (Normal)
[2022-10-23 15:14] LABS: Bacteria Many /hpf; Squamous Epithelial Cells Few /hpf (Few); U Amphetamine Screen Not Detected; U Barbituate Screen Not Detected; U Benzodiazapine Screen Not Detected; U Buprenorphine Screen Not Detected; U Cannabinoids Screen DETECTED; U Cocaine Screen Not Detected; U Methadone Screen Not Detected; U Methamphetamine Screen Not Detected; U Opiates Screen Not Detected; U Oxycodone Screen Not Detected; U Phencyclidine Screen Not Detected; U Propoxyphene Screen Not Detected; White Blood Cells, Urine TNTC /hpf (0-5)
--- NOTE | 2022-10-23 20:15 | NUR ---
ADMIT NOTE; PT ARRIVES FROM THE ED VIA WHEELCHAIR. UPON ADMIT THE PT APPEARS TO BE IN NO DISTRESS. THE PT IS AXO X4, SHORT TERM MEMORY DEFICITS NOTED. THE PT IS ABLE TO TRANSFER FROM THE WHEELCHAIR TO THE BED INDEPENDENTLY. THE PT DENIES ANY PAIN AT TIME OF ADMIT. THE PT HAS OVERALL POOR HYGIENE. 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 CURRENTLY THE PT IS RESTING IN BED WITH THE BED IN THE LOWEST POSITION AND THE CALL LIGHT AT BEDSIDE. PT EDUCATED ON IGNITION SOURCES AND [facility] POLICY, PT DENIES HAVING ANY POSSIBLE IGNITION SOURCES IN POSSESSION AT THIS TIME. PT WOULD LIKE A NICOTINE PATCH. ORDER OBTAINED FOR NICOTINE PATCH.
[2022-10-23 20:18] VITALS: BP 120/79
--- NOTE | 2022-10-24 04:27 | NUR ---
SHIFT SUMMARY; NO ACUTE CHANGES OVERNIGHT. PT IS AXO X3-4 WITH SOME SHORT TERM MEMORY DEFICITS. THE PT IS INDEPENDENT IN THE ROOM. 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 THE PT MOOD IS VERY LABILE THIS PM. THE PT REPORTED SOME PAIN AT THE BEGINNIG OF THE NIGHT, ONCE MEDICATED THE PT REPORTED GOOD RELIEF. THE PT OTHERWISE DENIES ANY CHEST PAIN/PRESSURE, SOB, PAIN OR N/V THIS SHIFT. CURRENTLY THE PT IS SLEEPING IN BED WITH THE BED IN THE LOWEST POSITION AND THE CALL LIGHT AT BEDSIDE. FIRE SAFETY MAINTAINED T/O THE NIGHT.
[2022-10-24 04:47] VITALS: BP 134/88
[2022-10-24 04:57] LABS: BASOPHILS ABSOLUTE AUTO 0.12 K/mm3 (0.00-0.23); BASOPHILS PERCENT AUTO 1 % (0-2); EOSINOPHILS ABSOLUTE AUTO 0.22 K/mm3 (0.00-0.68); EOSINOPHILS PERCENT AUTO 1 % (0-6); Hematocrit 29.9 % (37.0-53.0); IMMATURE GRAN PERCENT AUTO 1 % (0-1); LYMPHOCYTES ABSOLUTE AUTO 3.97 K/mm3 (0.84-5.20); LYMPHOCYTES PERCENT AUTO 25 % (21-46); MONOCYTES ABSOLUTE AUTO 1.48 K/mm3 (0.16-1.47); MONOCYTES PERCENT AUTO 9 % (4-13); Mean Corpuscular HGB 33.7 pg (26.0-34.0); Mean Corpuscular HGB Conc 33.4 g/dL (31.5-36.5); Mean Corpuscular Volume 101 fL (80-100); Mean Platelet Volume 9.7 fL (9.1-12.4); NEUTROPHILS ABSOLUTE AUTO 10.22 K/mm3 (1.96-9.15); NEUTROPHILS PERCENT AUTO 63 % (41-73); Platelet Count 453 K/mm3 (150-400); RDW Coefficient Variation 13.2 % (11.7-14.2); RDW Standard Deviation 48.9 fL (35.1-46.3); Red Blood Cell Count 2.97 M/mm3 (4.30-5.90); White Blood Cell Count 16.21 K/mm3 (4.00-11.30)
[2022-10-24 05:15] LABS: Albumin, Blood 1.8 g/dL (3.4-5.0); Albumin/Globulin Ratio 0.4 (0.8-1.8); Bilirubin, Total 0.3 mg/dL (0.1-1.0); Bun/Creatinine Ratio 9.2 (12.0-20.0); Calcium, Blood 7.6 mg/dL (8.5-10.1); Creatinine, Blood 0.54 mg/dL (0.60-1.20); Globulin, Blood 4.1 g/dL (2.2-4.0); Potassium, Blood 3.4 mmol/L (3.5-5.5); Total Protein, Blood 5.9 g/dL (6.4-8.2)
[2022-10-24 07:48] VITALS: BP 144/86
[2022-10-24] MEDS ORDERED: CEFD300 PO (15:40)
[2022-10-24] MEDS ORDERED: LACT PO (15:41)
[2022-10-24] MEDS ORDERED: VALA500 PO (16:00)
--- NOTE | 2022-10-24 16:56 | NUR ---
DISCHARGE NOTE PT DISCHARGED TO HOME WITH HOME HEALTH. TWO FRIENDS OF THE FAMILY PICKED HIM UP, TAKEN TO THE VEHICLE BY WHEELCHAIR. IV REMOVED. DISCHARGE INFORMATION AND EDUCATION PROVIDED. FIRE SAFETY PROTOCOLS MAINTAINED. MEDICATIONS FAXED TO THE PHARMACY OF HIS CHOICE.
== END 2022-10-24 16:57 | disposition home or self-care (01) ==
LOC: ER 10:17 → MEDS 10:18
PROVIDERS: Emergency Medicine; Physician Assistant; Student in an Organized Health Care Education/Training Program; ADMIT Internal Medicine
DX: A41.9 Sepsis, unspecified organism (principal); N39.0 Urinary tract infection, site not specified; D17.9 Benign lipomatous neoplasm, unspecified; F17.210 Nicotine dependence, cigarettes, uncomplicated; F10.90 Alcohol use, unspecified, uncomplicated; Z20.822 Contact with and (suspected) exposure to COVID-19
CPT/HCPCS: 0241U; 36415; 70470; 71046; 80053; 81001; 83605; 83735; 85025; 85060; 87040; 87077; 87086; 87186; 93005; 93010; 96361; 96365-59; 96366-59; 96372; 97116; 97161; 99285-25; A9270; G0378; G0480; J0696; J1650; J7030; Q9967

== ENCOUNTER 2023-02-15 16:08 | Inpatient (IN) | payer MEDICARE, OTHER ==
[~2023-02-15] VITALS: Ht 172.7 cm; Wt 50.0 kg
[2023-02-15] VITALS (13 sets, daily range): BP systolic 84–152; BP diastolic 44–77
[~2023-02-15 16:08] MED LIST changes: +CEFD300 PO; +LACT PO; +VALA500 PO
[2023-02-15 16:45] LABS: BASOPHILS ABSOLUTE AUTO 0.06 K/mm3 (0.00-0.23); BASOPHILS PERCENT AUTO 0 % (0-2); EOSINOPHILS ABSOLUTE AUTO 0.07 K/mm3 (0.00-0.68); EOSINOPHILS PERCENT AUTO 0 % (0-6); Hematocrit 33.5 % (37.0-53.0); Hemoglobin 12.1 g/dL (13.5-17.5); IMMATURE GRAN ABSOLUTE AUTO 0.19 K/mm3 (0.00-0.10); IMMATURE GRAN PERCENT AUTO 1 % (0-1); LYMPHOCYTES ABSOLUTE AUTO 1.72 K/mm3 (0.84-5.20); LYMPHOCYTES PERCENT AUTO 11 % (21-46); MONOCYTES ABSOLUTE AUTO 1.31 K/mm3 (0.16-1.47); MONOCYTES PERCENT AUTO 8 % (4-13); Mean Corpuscular HGB Conc 36.1 g/dL (31.5-36.5); Mean Corpuscular Volume 83 fL (80-100); NEUTROPHILS ABSOLUTE AUTO 12.99 K/mm3 (1.96-9.15); NEUTROPHILS PERCENT AUTO 80 % (41-73); Platelet Count 220 K/mm3 (150-400); RDW Coefficient Variation 13.2 % (11.7-14.2); RDW Standard Deviation 40.1 fL (35.1-46.3); Red Blood Cell Count 4.04 M/mm3 (4.30-5.90); White Blood Cell Count 16.34 K/mm3 (4.00-11.30)
[2023-02-15 17:13] LABS: Source, Urine Straight Cath
[2023-02-15 17:18] LABS: Appearance, Urine Cloudy (Clear); Bilirubin, Urine Neg (Neg); Blood, Urine 5+ (Neg); Color, Urine Yellow (P-Yellow); Glucose Qualitative, Urine Neg (Neg); Ketones, Urine Neg (Neg); Leukocyte Esterase, Urine 3+ (Neg); Nitrite, Urine Neg (Neg); Protein, Urine 2+ (Neg); Specific Gravity, Urine 1.005 (1.003-1.022); Urobilinogen, Urine 2+ (Normal)
[2023-02-15 17:28] LABS: Ethanol (Alcohol), Blood, Med <3 mg/dL
[2023-02-15 17:30] LABS: Alanine Aminotransfer (ALT/SGP 15 U/L (12-78); Albumin, Blood 2.8 g/dL (3.4-5.0); Albumin/Globulin Ratio 0.6 (0.8-1.8); Alk Phos 188 U/L (50-136); Anion Gap 9 mmol/L (6-16); Aspartate Aminotrans (AST/SGOT 31 U/L (12-37); Bilirubin, Total 1.5 mg/dL (0.1-1.0); Blood Urea Nitrogen 7 mg/dL (8-24); Bun/Creatinine Ratio 18.8 (12.0-20.0); CO2, Blood 24 mmol/L (21-32); Calcium, Blood 8.1 mg/dL (8.5-10.1); Chloride, Blood 75 mmol/L (98-108); Creatinine, Blood 0.37 mg/dL (0.60-1.20); Globulin, Blood 4.6 g/dL (2.2-4.0); Glomerular Filtration Rate 135 (60-); Glucose, Blood 89 mg/dL (70-99); Potassium, Blood 3.6 mmol/L (3.5-5.5); Sodium, Blood 108 mmol/L (136-145); Total Protein, Blood 7.4 g/dL (6.4-8.2)
[2023-02-15 17:30] LABS: Bacteria Many /hpf; Squamous Epithelial Cells Few /hpf (Few)
[2023-02-15 17:31] LABS: Base Excess Venous 0 mmol/L; Bicarbonate Venous 23.9 mmol/L (24.0-30.0); PCO2 Venous 42.1 mmHg (38-42); U Amphetamine Screen Not Detected; U Barbituate Screen Not Detected; U Benzodiazapine Screen Not Detected; U Buprenorphine Screen Not Detected; U Cannabinoids Screen DETECTED; U Cocaine Screen Not Detected; U Methadone Screen Not Detected; U Methamphetamine Screen Not Detected; U Opiates Screen Not Detected; U Oxycodone Screen Not Detected; U Phencyclidine Screen Not Detected; pH Blood Venous 7.38 (7.34-7.37)
[2023-02-15 19:07] LABS: Influenza A, PCR NEGATIVE (NEGATIVE); Influenza B, PCR NEGATIVE (NEGATIVE); Resp Syncytial Virus, PCR NEGATIVE (NEGATIVE); SARS-Cov-2 (COVID-19) PCR, MMC NEGATIVE (NEGATIVE)
--- NOTE | 2023-02-15 20:35 | NUR ---
ADMIT TO ICU 3: PT TRANS[ORTED VIA GURNEY WITH RN AT BEDSIDE AND HEART MONITOR ATTACHED. PT DIFFICULT TO UNDERSTAND WHEN TALKING; SPEECH IS MUMBLED AND GARBLED. PT IS VERY TACHYPNEIC WITH RR 42 WITH BIOX 93% ON 6 L N/C. LS COARSE WITH WHEEZES T/O AND DIMINSIDHED INTHE BASES. PT STARTED TO DESAT TO 70%; OXYMASK OBTAINED AND PLACED ON PT AT 15L, BUT WAS TITRATED DOWN TO 10L. HEART SOUNDS S1 AND S2 AUSCULTATED WITH MONITOR SHOWING ST WITH HR 110'S. SKIN PALE, WARM AND DRY. PT IS VERY WEAK AND DECONDIOTIONED WITH SCATTERED SCABS AND ABRAISONS; PICTURES TAKEN. 18G IV LAC WITH GREAT DRAW BACK; 3% SALINE STARTED AT 25CC/HR. 20G IV L FA WITH NS TKO RUNNING WITH ABX. NEW 18G IV STARTED RFA WITH MG RUNNING. ABD R/S WITH HYPER BTX4. DR. REYES CAME THRU WITH A DISCUSSION OF PLAN OF CARE.
[2023-02-15 21:38] LABS: Thyroid Stimulating Hormone 2.41 uIU/mL (0.360-4.800)
[2023-02-15 21:43] LABS: Magnesium, Blood 1.1 mg/dL (1.6-2.4)
--- NOTE | 2023-02-15 23:40 | NUR ---
SPOKE WITH MOM, LUNA ON THE PHONE TO GET A HISTORY ON THE PT. MOM STATES HE FELL FROM A LADDER 40FT IN 2019 WHICH REQUIRED HIM TO HAVE MULTIPLE BRAIN SURGERIES. SHE ALSO STATES HE HAD AN EAR INFECTION THAT WENT TO HIS BRAIN THAT ALSO CAUSED HIM TO HAVE MORE BRAIN SURGERIES. MOM STATES THAT HE WALKS AND TALKS AT HOME, BUT THAT FOR THE LAST 3 DAYS HAS BEEN MORE CONFUSED. ALSO STATES THAT HE DRINKS A 6 PK OF BEER DAILY, SMOKES ABOUT 1 PK OF CIGARTTES DAILY AND ALSO SMOKES MARIJUANA.
[2023-02-16] VITALS (58 sets, daily range): BP systolic 75–137; BP diastolic 52–89
--- NOTE | 2023-02-16 00:10 | NUR ---
DR. REYES NOTIFIED OF CRITICAL NA+ LEVEL OF 114; WANTS TO HOLD 3%NA AND DRAW A NA LEVEL IN 1 HR.
--- NOTE | 2023-02-16 01:10 | NUR ---
BIOX 100% ON 10L OXYMASK; CHANGED PT TO 2L N/C WITH BIOX REMAINING TO BE 98%
[2023-02-16 03:18] LABS: Hematocrit 23.4 % (37.0-53.0); Hemoglobin 8.4 g/dL (13.5-17.5); Mean Corpuscular HGB 30.2 pg (26.0-34.0); Mean Corpuscular HGB Conc 35.9 g/dL (31.5-36.5); Mean Corpuscular Volume 84 fL (80-100); Mean Platelet Volume 10.1 fL (9.1-12.4); Platelet Count 139 K/mm3 (150-400); RDW Coefficient Variation 13.3 % (11.7-14.2); RDW Standard Deviation 41.4 fL (35.1-46.3); Red Blood Cell Count 2.78 M/mm3 (4.30-5.90); White Blood Cell Count 21.29 K/mm3 (4.00-11.30)
--- NOTE | 2023-02-16 03:30 | NUR ---
BIOX 99% ON 2L N/C; O2 REMOVED.
[2023-02-16 03:46] LABS: Uric Acid, Blood 2.3 mg/dL (3.5-7.2)
[2023-02-16 04:11] LABS: Albumin, Blood 1.6 g/dL (3.4-5.0); Blood Urea Nitrogen 9 mg/dL (8-24); Bun/Creatinine Ratio 19.5 (12.0-20.0); CO2, Blood 17 mmol/L (21-32); Chloride, Blood 101 mmol/L (98-108); Creatinine, Blood 0.46 mg/dL (0.60-1.20); Glomerular Filtration Rate 127 (60-); Glucose, Blood 73 mg/dL (70-99); Phosphorus, Blood 0.7 mg/dL (2.5-4.9); Potassium, Blood 2.1 mmol/L (3.5-5.5)
[2023-02-16 04:12] LABS: Anion Gap 10 mmol/L (6-16); Calcium, Blood 5.2 mg/dL (8.5-10.1); Sodium, Blood 128 mmol/L (136-145)
--- NOTE | 2023-02-16 05:28 | NUR ---
SHIFT SUMMARY: PT'S SPEECH HAS CLEARED UP, BUT HE REPEATS HIS QUESTIONS NUMEROUS TIMES. CIWA THIS AM IS 2. ELECTOLYTES BEING RPLEACED. LS COARSE T/O WITH OCCASSIONAL WHEEZES T/O; O2 REQUIREMENTS BACK TO BASELINE AT RA WITH BIOX 98%.
--- NOTE | 2023-02-16 08:00 | NUR ---
INITIAL ASSESSMENT PATIENT SLEEPING UPON ENTERING ROOM. PATIENT WAKES TO VERBAL STIMULI. PATIENT BLIND IN L EYE AND CAN SEE SOME SHAPES AND SHADOWS OUT OF R EYE. PATIENT HAS HX OF TBI. MOM IS PATIENT'S CAREGIVER. PATIENT ORIENTED TO SELF, MOM AND TOWN. PATIENT CONTINUES TO ASK SAME QUESTION OF "WHAT TIME IS IT" 5 TIMES IN SAME 15 MINUTE PERIODS BUT FORGETS. PATIENT CACHECTIC. PATIENT DENIES PAIN. PATIENT AFEBRILE. CIWA SCORE OF 3 BUT ONLY FOR CONFUSION. PATIENT SATTING 90% AND GREATER ON RA. PATIENT HAS MOIST, NON-PRODUCTIVE COUGH. LUNGS CLEAR TO AUSCULTATION. PATIENT IN SR, HR IN THE 90S. SBP IN THE 1-TEENS. PATIENT NPO AT THIS TIME. LAST BM ON PER DOCUMENTATION. PATIENT INCONTINENT OF URINE. URINE DARK ORANGE IN COLOR. BRIEFS IN PLACE. SKIN PALE. REDDENED, ROUND, QUARTER-SIZED AREAS SCATTERED ALL OVER BODY. STAGE 1 PRESSURE SORE NOTED TO L ISCHIAL TUBEROSITY. BED LOW, CALL LIGHT IN REACH. TAB ALARM PLACED. CARE CONTINUES.
--- NOTE | 2023-02-16 08:29 | NUR ---
DR. THOMPSON AND DR. REYES IN TO SEE PATIENT THIS AM. DR. THOMPSON INFORMED OF INCREASING WBCS. ORDERS RECEIVED AND PLACED.
--- NOTE | 2023-02-16 10:35 | NUR ---
DR. THOMPSON CALLED AND INFORMED THAT PATIENT SKIN FLUSHED, PATIENT DRY, HEAVING OFF AND ON BUT PATIENT REFUSES NAUSEA, HR IN THE 140S, BP STABLE, O2 100% ON RA. RR IN THE 30S. PATIENT DENIES PAIN. GLUCOSE CHECKED AND IS 124. INFORMED THAT PATIENT SODIUM DECREASED FROM 118 TO 117. INFORMED THAT PATIENT STARTED ON 3% SALINE BY DR. REYES. STATED HE WOULD PLACE ORDERS.
--- NOTE | 2023-02-16 12:00 | NUR ---
PATIENT AFEBRILE. PATIENT RECEIVED PRN ATIVAN 1 MG IV FOR CIWA OF 17. HR DOWN FROM 140S TO 1-TEENS AND BP SOFT WITH SBP IN THE 80S. FLUSHING, TREMORS AND NAUSEA ALL IMPROVED. CIWA SCORE OF 3. CONDOM CATH PLACED. 3% SALINE INFUSING FOR HYPONATREMIA. NO COMPLAINTS OF PAIN OR DISCOMFORT. CARE CONTINUES.
--- NOTE | 2023-02-16 16:00 | NUR ---
PATIENT AFEBRILE. HR IN THE LOW 100S. SBP 80S TO LOW 100S. DR. REYES INFORMED OF SOFT BP, THAT PATIENT NPO AND THAT PATIENT IS NOT RECEIVING ANY MAINTENANCE FLUIDS. CIWA SCORE OF 3. CHG BEDBATH GIVEN. PICTURES TAKEN OF ALL PATIENT SCABS, SORES, AND ABRASIONS. PATIENT DENIES PAIN. BED LOW, CALL LIGHT IN REACH. CARE CONTINUES.
--- NOTE | 2023-02-16 18:00 | NUR ---
SHIFT SUMMARY PATIENT NAPPED ON AND OFF THROUGHOUT SHIFT. PATIENT REMAINED PLEASANT AND COOPERATIVE. PATIENT PULLED AT EQUIPMENT OFF AND ON THROUGHOUT SHIFT BUT WAS EASILY REDIRECTED. PATIENT REMAINED ORIENTED TO SELF, MOM, TOWN AND FOLLOWING COMMANDS. PATIENT CONTINUES TO BE CONFUSED ABOUT PLACE (HOSPITAL) AND ALSO ASKS SOME OF THE SAME QUESTIONS OVER AND OVER AGAIN. CIWA 17 ONE TIME THIS SHIFT, OTHERWISE CIWA ONLY 3 AND ONLY BECAUSE OF MEMORY ISSUES. PATIENT HAS REMAINED AFEBRILE. PATIENT HAS NOT HAD ANY COMPLAINTS OF SAMANTHA THIS SHIFT. PATIENT REMAINED SATTING 90% AND GREATER ON RA. PATIENT CONTINUED WITH OCCASIONAL COUGH. PATIENT REMAINED SR TO ST, HR 90S TO 140S. SBP 80S TO 130S. PATIENT GIVEN SIP OF WATER THIS AM AND COUGHED AFTER IMMEDIATELY. PATIENT HAS REMAINED NPO. SPEECH EVAL ORDERED THIS SHIFT. SPEECH THERAPY CAME TO SEE PATIENT BUT PATIENT LETHARGIC FROM PRN ATIVAN FOR CIWA OF 17. NO BM THIS SHIFT. PATIENT REMAINED INCONTINENT OF URINE. BRIEFS IN PLACE. CONDOM CATH PLACED THIS SHIFT. URINE DARK ORANGE IN COLOR. PATIENT RECEIVED COMPLETE CHG BED BATH THIS SHIFT. PICS OF SKIN PLACED IN PATIENT CHART. MEPILEX APPLIED TO COCCYX AND SORE ON L THIGH. 3% SALINE INFUSING AT 30 MLS/ HOUR. LABS AT [address]URSE TO CALL DR. REYES BY 1999. PATIENT RECEIVED POTASSIUM AND PHOSPHORUS REPLACEMENTS THIS AM. BLOOD SUGARS 126 AND 122. PATIENT'S MOTHER, LUNA, CALLED TWICE TO CHECK ON PATIENT. PATIENT RESTING QUIETLY AT THIS TIME. NO COMPLAINTS. BED LOW, CALL LIGHT IN REACH. REPORT WILL BE GIVEN TO ASSUMING PARACHUTE PACKER NURSE SHORTLY.
[2023-02-16 19:36] LABS: Magnesium, Blood 2.3 mg/dL (1.6-2.4)
[2023-02-16 19:37] LABS: Anion Gap 9 mmol/L (6-16); Blood Urea Nitrogen 15 mg/dL (8-24); Bun/Creatinine Ratio 16.9 (12.0-20.0); CO2, Blood 22 mmol/L (21-32); Calcium, Blood 7.4 mg/dL (8.5-10.1); Chloride, Blood 91 mmol/L (98-108); Creatinine, Blood 0.89 mg/dL (0.60-1.20); Glomerular Filtration Rate 104 (60-); Glucose, Blood 107 mg/dL (70-99); Phosphorus, Blood 3.7 mg/dL (2.5-4.9); Potassium, Blood 3.4 mmol/L (3.5-5.5); Sodium, Blood 122 mmol/L (136-145)
--- NOTE | 2023-02-16 20:37 | NUR ---
ASSUMPTION OF CARE: RECEIVED REPORT FROM MARIBEL AGUDELO. PT ALERT AND ORIENTED TO PERSON, PLACE AND SELF. CONFUSED AT TIMES AND FREQUENTLY REPEATS HIMSELF. EASILY REDIRECTABLE. ABLE TO FOLLOW COMMANDS. PT ON RA WITH SPO2 >95%, DENIES SOB. TAPER OPERATOR IN PLACE, SIT WITH HR 100'S. SBP 90'S. DENIES CHEST PAIN OR PRESSURE. PT DENIES HEADACHE, N/V, NO TREMORS OR HALLUCINATIONS. PT HAS CONDOM CATH IN PLACE, DRAINING YELLOW URINE. PT ABLE TO TRANSFER TO BEDSIDE COMMODE FOR BM WITH ASSISTANCE. 3% NACL INFUSING AT 15 ML/HR. PICC LINE TO RICK, INFUSING. PIV'S INTACT AND SALINE LOCKED. TAB ALARM IN PLACE. BED LOW AND LOCKED. CALL LIGHT IN REACH.
[2023-02-17] VITALS (23 sets, daily range): BP systolic 78–124; BP diastolic 50–79
[2023-02-17 03:18] LABS: Hematocrit 25.8 % (37.0-53.0); Hemoglobin 9.3 g/dL (13.5-17.5)
[2023-02-17 03:40] LABS: Albumin, Blood 2.1 g/dL (3.4-5.0); Anion Gap 10 mmol/L (6-16); Blood Urea Nitrogen 16 mg/dL (8-24); Bun/Creatinine Ratio 17.5 (12.0-20.0); CO2, Blood 19 mmol/L (21-32); Calcium, Blood 7.5 mg/dL (8.5-10.1); Chloride, Blood 95 mmol/L (98-108); Creatinine, Blood 0.92 mg/dL (0.60-1.20); Glomerular Filtration Rate 101 (60-); Glucose, Blood 105 mg/dL (70-99); Magnesium, Blood 2.3 mg/dL (1.6-2.4); Phosphorus, Blood 3.4 mg/dL (2.5-4.9); Potassium, Blood 3.4 mmol/L (3.5-5.5); Sodium, Blood 124 mmol/L (136-145)
--- NOTE | 2023-02-17 06:08 | NUR ---
SHIFT SUMMARY: NO ACUTE EVENTS T/O THE NIGHT. PT REMAINS ALERT AND ORIENTED TO PERSON AND PLACE. HAS PERIODS OF CONFUSION AND FREQUENTLY REPEATS HIMSELF, EASILY REDIRECTABLE. PT PLEASANT AND COOPERATIVE, FOLLOWING COMMANDS. PT REMAINS ON RA WITH SPO2 >95%. DENIES SOB. SOAPSTONER REMAINS, SR/ST WITH HR 90'S-100'S. SBP 80'S-90'S. DENIES CHEST PAIN OR PRESSURE. CIWA 7-8, DENIES HALLUCINATIONS, NO HEADACHE, NO TREMOR. SLIGHT NAUSEA T/O THE SHIFT WHICH WAS RELEIVED WITH MEDICATION PER APR. CONDOM CATH REMAINS, DRAINING SERGEI/YELLOW URINE. PICC TO RICK, INFUSING TKO AND POTASSIUM. PIV'S INTACT AND SALINE LOCKED. TAB ALARM REMAINS IN PLACE FOR SAFETY. BED LOW AND LOCKED, CALL LIGHT IN REACH.
--- NOTE | 2023-02-17 07:54 | NUR ---
MIGUEL IS PLEASANT AND CONVERSES WELL, KNOWS HIS BIRTHDAY AND HOW TO MAKE HIS NEEDS KNOWN. HE IS FORGETFUL AND UNSURE, MORE RELATIVE TO THE TBI. HIS LUNGS ARE CLEAR, IV INFUSING, CONDOM CATH IN PLACE. SEE ASSESSMENT.
--- NOTE | 2023-02-17 09:18 | NUR ---
MIGUEL PASSED HIS SWALLOW EVAL, HE IS TAKING IN APPLESAUCE, MARCELL CRACKERS AND SOME PUDDING. HE IS ALREADY ASKING WHAT'S FOR LUNCH. HE IS SWALLOWING HIS PILLS WELL AND IS ABLE TO COMMUNICATE HIS NEEDS.
--- NOTE | 2023-02-17 12:21 | NUR ---
PT NAPPED, AWAKENS ASKING ABOUT LUNCH. TRAY SET UP FOR HIM, HE IS EATING WELL. CHICKEN AND RICE. HE ASKS ABOUT HIS MOM AND WHEN SHE WILL VISIT. CONTINUES TO BE APPROPRIATE AND COOPERATIVE WITH CARE.
--- NOTE | 2023-02-17 18:21 | NUR ---
MIGUEL HAS BEEN PLEASANT AND COOPERATIVE T/O THE SHIFT. HE CONTINUES ON TKO NS VIA PIC LINE IN RICK, HE HAS LEFT PIV X2. HE CONTINUES WITH CONDOM CATH IN PLACE, URINE COLOR OF COLA. ABLE TO EAT AND DOES WELL WHEN TRAY IS SET UP AND HE IS TOLD WHERE EVERYTHING IS PLACED. HE HAS BEEN DRINKING WATER AND MILK. TAKES MEDICATION ORALLY WITHOUT ANY TROUBLE. CONTINUES TO ASK ABOUT HIS MOM, HAVEN'T HEARD FROM HER TODAY.
--- NOTE | 2023-02-17 19:15 | NUR ---
ASSUMED CARE I ASSUMED CARE OF THIS PATIENT FROM JAMMIE SALDIVAR. BEDSIDE REPORT COMPLETED. NS TKO IND TO RICK PICC. PIV X 2 ON LT ARM SALINE LOCKED. CONDOM CATH IN PLACE. WATER AND HOSPITAL PHONE ON BEDSIDE TABLE, CALL LIGHT IN REACH. BELONGINGS IN OPEN CUPBOARD IN ROOM. NO VISITORS AT BEDSIDE. PATIENT RESPONDS TO STAFF TALKING AT BEDSIDE. MONITOR SHOWS SINUS TACHYCARDIA WITH RATE IN 100'S, BP STABLE, SPO2 100%.
[2023-02-18 00:07] VITALS: BP 118/73
[2023-02-18 03:28] LABS: Hematocrit 23.8 % (37.0-53.0); Hemoglobin 8.4 g/dL (13.5-17.5)
[2023-02-18 03:43] LABS: Magnesium, Blood 2.2 mg/dL (1.6-2.4)
[2023-02-18 03:44] LABS: Albumin, Blood 2.1 g/dL (3.4-5.0); Anion Gap 6 mmol/L (6-16); Blood Urea Nitrogen 13 mg/dL (8-24); Bun/Creatinine Ratio 15.5 (12.0-20.0); CO2, Blood 22 mmol/L (21-32); Calcium, Blood 7.5 mg/dL (8.5-10.1); Chloride, Blood 101 mmol/L (98-108); Creatinine, Blood 0.84 mg/dL (0.60-1.20); Glomerular Filtration Rate 106 (60-); Glucose, Blood 108 mg/dL (70-99); Phosphorus, Blood 2.6 mg/dL (2.5-4.9); Potassium, Blood 3.5 mmol/L (3.5-5.5); Sodium, Blood 129 mmol/L (136-145)
--- NOTE | 2023-02-18 06:03 | NUR ---
SHIFT SUMMARY PATIENT BARELY SLEPT T/O SHIFT. SLEPT FOR 30MIN-1HR AT A TIME. REQUIRED FREQUENT REORIENTATION AND TAB ALARM USED T/O SHIFT TO ASSIST IN PATIENT SAFETY. PATIENT TOLERATED PO INTAKE WELL AND REQUESTED A BEER LAST NIGHT. ORDER PLACED TO ALLOW ONE BEER WITH EACH MEAL PER PATIENT REQUEST UP TO TID PER DR. ACEVES. VSS. USED URINAL AT BEDSIDE WITH TOTAL OF 675ML OUT. CIWA 3 T/O SHIFT D/T DISORIENTATION. PATIENT WAS CALM AND COOPERATIVE WITH CARE T/O SHIFT AND GRATEFUL FOR CARE RECEIVED.
[2023-02-18 08:00] VITALS: BP 119/71
--- NOTE | 2023-02-18 18:21 | NUR ---
MIGUEL HAS REFUSED HIS DINNER, SAID THAT HE "JUST ISN'T FEELING GREAT". HE IS TRYING TO REST. HE HAS BEEN FORGETFUL TODAY ABOUT WHERE HE IS. HE HAS BEEN ABLE TO EAT AND DRINK AND USE THE RESTROOM. HE REMAINS WITH HIS DRY COUGH. CONTINUES TO ASK WHEN HIS MOM WILL VISIT.
[2023-02-18 19:56] VITALS: BP 143/75
--- NOTE | 2023-02-18 20:38 | NUR ---
ASSUMPTION OF CARE BEDSIDE SHIFT REPORT RECEIVED FROM DAYSHIFT RN. PT RESTING IN BED, ALERT. ABLE TO ANSWER MOST QUESTIONS AND FOLLOW COMMANDS. PT ABLE TO STATE NAME, , AND CITY, BUT UNSURE OF YEAR OR THAT HE IS IN THE HOSPITAL. PT FORGETFUL BUT EASILY REDIRECTABLE. MAP >65. PT ON RA, OXYGEN SATURATION >95%. PT USES BEDSIDE COMMODE WITH ASSISTANCE. PICC LINE IN PLACE TO RICK SL, PIV TO LEFT WRIST SL. BED IN LOWEST POSITION, CALL LIGHT WITHIN REACH. CARE CONTINUES.
[2023-02-19 03:58] LABS: Hematocrit 24.5 % (37.0-53.0); Hemoglobin 8.3 g/dL (13.5-17.5)
[2023-02-19 04:19] LABS: Albumin, Blood 2.1 g/dL (3.4-5.0); Anion Gap 5 mmol/L (6-16); Blood Urea Nitrogen 9 mg/dL (8-24); CO2, Blood 23 mmol/L (21-32); Calcium, Blood 7.7 mg/dL (8.5-10.1); Chloride, Blood 103 mmol/L (98-108); Creatinine, Blood 0.75 mg/dL (0.60-1.20); Ferritin, Serum 117 ng/mL (26-388); Glomerular Filtration Rate 109 (60-); Glucose, Blood 107 mg/dL (70-99); Iron Serum 79 ug/dL (65-175); Magnesium, Blood 1.8 mg/dL (1.6-2.4); Percent Saturation 40.7 % (20.0-50.0); Phosphorus, Blood 2.9 mg/dL (2.5-4.9); Potassium, Blood 3.8 mmol/L (3.5-5.5); Sodium, Blood 131 mmol/L (136-145); Total Iron Binding Capacity 194 ug/dL (250-450)
[2023-02-19 04:58] VITALS: BP 150/82
[2023-02-19 04:58] LABS: CREATININE,URINE - PER VOLUME 80 mg/dL; HOURS COLLECTED Not Provided hr; TOTAL VOLUME Not Provided mL
--- NOTE | 2023-02-19 05:34 | NUR ---
SHIFT SUMMARY PT RESTING IN BED, SLEEPING BUT AROUSABLE. PT ANSWERS MOST QUESTIONS AND FOLLOWS COMMANDS. PT ABLE TO STATE HIS NAME, AND TOWN, BUT UNSURE OF YEAR AND THAT HE IS IN THE HOSPITAL. PT IS FORGETFUL BUT EASILY REDIRECTABLE. MAP >65. PT ON RA, OXYGEN SATURATION >95%. PIV TO LEFT FOREARM SL. PT USES BEDSIDE COMMODE WITH ASSISTANCE TO VOID. BED IN LOWEST POSITION, CALL LIGHT WITHIN REACH. CARE CONTINUES.
[2023-02-19 09:20] VITALS: BP 134/89
--- NOTE | 2023-02-19 15:17 | NUR ---
SUMMARY PT A/O TO PERSON AND PLACE. FORGETFUL AT TIMES BUT REORIENTS EASILY. TOLERATING MEALS WELL. OOB TO CHAIR THIS AFTERNOON. DOES WELL AMBULATING WITH FWW AND GAITBELT. PT HAS NO VISION IN L EYE AND VERY POOR VISION IN R EYE BUT DOES WELL WITH VERBAL CUES. TRANSFERING TO MEDICAL FLOOR ROOM 353 VIA W/C. NO SIGN OF DISTRESS PT LEAVES THE UNIT.
--- NOTE | 2023-02-19 16:48 | NUR ---
RN NOTE MR DEVINE WAS TRANSFERED FROM ICU TO MEDICAL UNIT AT 1525HRS VIA WHEELCHAIR. HE WAS ABLE TO PIVOT TRANSFER FROM THE WHEELCHAIR TO THE BED INDEPENDENTLY. HE WAS ORIENTATED TO THE CALL LIGHT AND ROOM, RAISED BUTTON PRODUCTION SPECIALIST LIGHT PT IS LEGALLY BLIND. HE IS FORGETFUL, NOT ORIENTATED TO DATE/YEAR. BED LOW, CALL LIGHT IN REACH. BED ALARM ON.
[2023-02-19 17:14] VITALS: BP 150/81
[2023-02-19 20:06] VITALS: BP 144/82
[2023-02-20 03:40] VITALS: BP 134/72
[2023-02-20 06:18] LABS: Hematocrit 28.7 % (37.0-53.0); Hemoglobin 9.8 g/dL (13.5-17.5)
--- NOTE | 2023-02-20 06:26 | NUR ---
SHIFT SUMMARY: PT IS ADMITTED FOR TOXIC METABOLIC ENCEPHALOPATHY AND IS A FULL CODE. IS ALERT AND ABLE TO MAKE NEEDS KNOWN. WAS NOT ABLE TO STATE CURRENT SITUATION OR PLACE BUT KNEW TOWN. ADLs HAVE BEEN 1P STBY THROUGH SHIFT. DENIES PAIN OR DISCOMFORT WHEN ASKED.
[2023-02-20 06:55] LABS: Albumin, Blood 2.3 g/dL (3.4-5.0); Anion Gap 4 mmol/L (6-16); Blood Urea Nitrogen 9 mg/dL (8-24); Bun/Creatinine Ratio 13.2 (12.0-20.0); CO2, Blood 24 mmol/L (21-32); Calcium, Blood 8.2 mg/dL (8.5-10.1); Chloride, Blood 103 mmol/L (98-108); Creatinine, Blood 0.68 mg/dL (0.60-1.20); Glomerular Filtration Rate 113 (60-); Glucose, Blood 94 mg/dL (70-99); Magnesium, Blood 1.6 mg/dL (1.6-2.4); Phosphorus, Blood 3.2 mg/dL (2.5-4.9); Potassium, Blood 4.3 mmol/L (3.5-5.5); Sodium, Blood 131 mmol/L (136-145)
[2023-02-20 07:37] VITALS: BP 141/81
--- NOTE | 2023-02-20 10:45 | NUR ---
RN NOTE MR NILSON SAID HE FEELS READY TO BE DISCHARGED HOME. I CALLED AND TALKED WITH LUNA HIS MOTHER - SHE SAID THAT THERE IS NOTHING THAT THEY NEED AT HOME FOR HIS CARE, THAT SHE FEELS COMPLETELY COMFORTABLE CARING FOR HIM AND THAT SHE CAN COME AND GET HIM FOR DISCHARGE. SHE SAID THAT SHE HAS SPOKEN WITH HER SON AND HIS MENTAL STATUS IS BACK TO BASELINE.
--- NOTE | 2023-02-20 11:05 | NUR ---
RN NOTE ON ADMISSION THERE ARE NO HOME MEDICATIONS ON THE COMPLETED MED REC. LUNA (MOTHER) CONFIRMED THAT MIGUEL HAS NOT BEEN TAKING HOME MEDICATIONS AND HAS NOT SEEN A DOCTOR FOR A WHILE. SHE SAID HE USED TO BE BAD ABOUT TAKING THEM AND SHE WOULD FIND THEM DISCARDED. SHE SAID THAT IF HE HAS NEW PRESCRIPTIONS SHE WILL KEEP THE MEDICATIONS IN HER ROOM AND GIVE THEM TO HIM PRESCRIBED AND CHECK TO MAKE SURE HE HAS TAKEN THEM. SHE SAID SHE FEELS COMFORTABLE DOING THIS.
[2023-02-20] MEDS ORDERED: DOXY100 PO (11:32)
[2023-02-20] MEDS ORDERED: MULVITA PO (11:33)
[2023-02-20] MEDS ORDERED: Vitamin D1000 UNI1 PO (11:33)
--- NOTE | 2023-02-20 12:07 | NUR ---
DISCHARGE NOTE MR DEVINE IS DISCHARGED HOME WITH HIS MOTHER LUNA. W/C ESCORT DOWN TO EXIT. PT AND HIS OTHER VERBALISE UNDERSTANDING OF WRITTEN AND VERBAL DISCHARGE INSTRUCTIONS. MR DEVINE DENIES ANY PROBLEMS OR CONCERNS AT TIME OF DISCHARGE. PIV REMOVED INTACT. NICOTENE PATCH REMOVED PER PT PREFERENCE PRIOR TO DISCHARGE.
== END 2023-02-20 12:09 | disposition home or self-care (01) | DRG 871 ==
LOC: ER 16:08 → MEDS 19:59 → ICUE 19:59 → MEDS 02-19 15:22 → ENPENDDIS 02-20 11:32 → MEDS 02-20 12:09
PROVIDERS: Emergency Medicine; Internal Medicine Nephrology; Nurse Practitioner Acute Care; ADMIT Internal Medicine
DX: A41.9 Sepsis, unspecified organism (principal); G92.8 Other toxic encephalopathy; J18.9 Pneumonia, unspecified organism; J96.01 Acute respiratory failure with hypoxia; N39.0 Urinary tract infection, site not specified; E87.1 Hypo-osmolality and hyponatremia; N17.9 Acute kidney failure, unspecified; Z11.52 Encounter for screening for COVID-19; F10.20 Alcohol dependence, uncomplicated; G31.84 Mild cognitive impairment of uncertain or unknown etiology; E83.42 Hypomagnesemia; F17.210 Nicotine dependence, cigarettes, uncomplicated; E83.51 Hypocalcemia; E83.30 Disorder of phosphorus metabolism, unspecified; E87.6 Hypokalemia; D50.9 Iron deficiency anemia, unspecified; Z87.820 Personal history of traumatic brain injury
CPT/HCPCS: 0241U; 36415; 36569; 51701; 70450; 71045; 71260; 80053; 80069; 81001; 82140; 82330; 82530; 82533; 82728; 82803; 82947; 83540; 83550; 83605; 83735; 83930; 83935; 84295; 84300; 84443; 84484; 84550; 85014; 85018; 85025; 85027; 87040; 87077; 87086; 87186; 92610; 93005; 93010; 94640; 94664; 94760; 94762; 97116; 97162; 99285-25; A9270; C1751; J0456; J0612; J0696; J1650; J2060; J2405; J2916; J3411; J3475; J3480; J7050; J7060; J7070; Q9967